=== PATIENT | female | born 1990 | race American Indian/Alaskan Native ===

== ENCOUNTER 2017-08-08 11:24 | Outpatient (CLI) | payer BC, MEDICAID ==
[2017-08-08] MEDS ORDERED: LACTATED RINGERS 0 ML ONE (12:29)
[2017-08-08 14:24] VITALS: BP 122/74
== END 2017-08-08 13:50 | disposition home or self-care (01) ==
LOC: TRG 11:24
PROVIDERS: ATTEND Obstetrics & Gynecology
DX: O47.1 False labor at or after 37 completed weeks of gestation (principal); Z3A.39 39 weeks gestation of pregnancy
CPT/HCPCS: J7120

== ENCOUNTER 2020-01-06 10:55 | Day surgery (SDC) | payer BC ==
--- NOTE | 2020-01-06 11:30 | Anesthesia Consultation ---
Anesthesia Consult and Med Hx Date of service: 01/06/20 - Airway Anesthetic Teeth Evaluation: Good ROM Head & Neck: Adequate Mental/Hyoid Distance: Adequate Mallampati Class: Class I Intubation Access Assessment: Good - Pulmonary Exam CTA: Yes - Cardiac Exam Cardiac Exam: RRR - Pre-Operative Health Status ASA Pre-Surgery Classification: ASA2 Proposed Anesthetic Plan: General - Pulmonary Hx Smoking: Yes (THC; black and milds) Hx Respiratory Symptoms: No - Cardiovascular System Hx Hypertension: No Hx Heart Attack/AMI: No - Central Nervous System CVA: No - Endocrine Hx Renal Disease: No Hx Liver Disease: No Hx Insulin Dependent Diabetes: No Hx Non-Insulin Dependent Diabetes: No Hx Thyroid Disease: No - Other Systems Hx Substance Use: Yes (THC) Hx Obesity: Yes (BMI 25) - Additional Comments Anesthesia Medical History Comments: No prior GA.
--- NOTE | 2020-01-06 11:30 | Anesthesia Day of Surgery ---
Anesthesia Day of Surgery - Day of Surgery Patient Examined: Yes Patient H&P Reviewed: Yes Patient is NPO: Yes
[2020-01-06] MEDS ORDERED: propofoL 200 MG/20 ML VIAL IV ONE (11:48)
[2020-01-06] MEDS ORDERED: HYDROmorphone 1 MG/1 ML INJ ONE (11:48)
[2020-01-06] MEDS ORDERED: ROCURONIUM 50 MG/5 ML INJ IV ONE (11:49)
[2020-01-06] MEDS ORDERED: LIDOCAINE MPF (2%) 20 MG/1 ML VIAL 5 ML ONE (11:49)
[2020-01-06] MEDS ORDERED: BUPIVACAINE-EPINEPHRINE/PF 0.5%-1:200,000 (30 ML) VIAL INFILTRATI ONE ×2 (11:53→13:53)
[2020-01-06] MEDS ORDERED: HEPARIN 5,000 UNIT/1 ML VIAL SUB-Q ONE (12:00)
[2020-01-06] MEDS ORDERED: MIDAZOLAM 2 MG/2 ML INJ IV NR (12:00)
[2020-01-06] MEDS ORDERED: ceFAZolin/Water 2 GM/20 ML 2 GM/20 ML SYRINGE IV ONE (12:00)
[2020-01-06] MEDS ORDERED: LACTATED RINGERS 1,000 ML IV SCH (12:00)
[2020-01-06] MEDS ORDERED: SCOPOLAMINE TRANSDERMAL PATCH 72 HR TD NR (12:00)
[2020-01-06] MEDS ORDERED: GABAPENTIN 300 MG CAP PO NR (12:00)
[2020-01-06] MEDS ORDERED: CELECOXIB 200 MG CAP PO NR (12:00)
[2020-01-06] MEDS ORDERED: SODIUM CHLORIDE 0.9% IRR 1,500 ML BOTTLE IR ONE (12:47)
[2020-01-06] MEDS ORDERED: dexAMETHasone 20 MG/5 ML VIAL ONE (12:56)
[2020-01-06] MEDS ORDERED: ceFAZolin/Water 2 GM/20 ML 2 GM/20 ML SYRINGE IV SCH (13:00)
--- NOTE | 2020-01-06 15:10 | Post Operative Note ---
Pre-op diagnosis: Epigastric hernia Post-op diagnosis: same Procedure: Open repair of epigastric hernia Anesthesia: MEGHAN Surgeon: ANALI ARAMBULA Estimated blood loss: minimal Pathology: none Specimen disposition: discarded Condition: stable Disposition: PACU
[2020-01-06] MEDS ORDERED: ONDANSETRON 4 MG/2 ML INJ ONE (15:23)
[2020-01-06] MEDS ORDERED: LACTATED RINGERS 1,000 ML ONE (15:23)
[2020-01-06] MEDS ORDERED: GLYCOPYRROLATE 0.4 MG/2 ML INJ ONE (15:23)
[2020-01-06] MEDS ORDERED: NEOSTIGMINE 10MG/10 ML INJ MDV ONE (15:23)
[2020-01-06] MEDS: HYDROmorphone 1 MG/1 ML INJ IV PRN ×3 (15:29→15:49)
[2020-01-06] MEDS ORDERED: oxyCODONE /ACETAMINOPHEN 5-325MG TAB PO PRN (15:30)
--- NOTE | 2020-01-06 15:39 | Post Anesthesia Evaluation ---
- Post Anesthesia Evaluation Patient Participated: Yes Airway Patent: Yes Stable Respiratory Function: Yes Nausea/Vomiting: No Temp > 96.8F: Yes Pain Manageable: Yes Adequeate Hydration: Yes Anesthesia Complications: No Block Receding Appropriately: Not Applicable Patient on Ventilator: No
[2020-01-06 16:17] VITALS: BP 144/91
--- NOTE | 2020-01-12 13:35 | Procedure Note ---
Date of procedure: 01/06/20 Pre-op diagnosis: Epigastric hernia Post-op diagnosis: same Procedure: Open repair of epigastric hernia Description of procedure: Pt was placed supine on the OR table. GETA was administered. Abdomen was prepped and draped. A vertical midline incision was made over the hernia sac. The sac was secondary to a severely attenuated diastasis recti. The sac was excised bilaterally back to the rectus musculature. Hemostasis was obtained with the Bovie. The fascia was then approximated with multiple interrupted sutures of 0-Ethibond. SQ tissue was irrigated. Redundant skin was excised. Skin was approximated with a running subcuticular suture of 4-0 Monocryl. Skin glue was applied. Pt tolerated the procedure well. She was extubated in the OR and was taken to PACU in stable condition. Anesthesia: GETA Surgeon: ANALI ARAMBULA Estimated blood loss: minimal Pathology: none Specimen disposition: discarded Condition: stable Disposition: PACU
== END 2020-01-06 16:55 | disposition home or self-care (01) ==
LOC: OR 10:55
PROVIDERS: ATTEND Surgery
DX: K43.9 Ventral hernia without obstruction or gangrene (principal); D64.9 Anemia, unspecified; E66.9 Obesity, unspecified; F17.210 Nicotine dependence, cigarettes, uncomplicated; Z79.899 Other long term (current) drug therapy; Z68.25 Body mass index [BMI] 25.0-25.9, adult; Z98.891 History of uterine scar from previous surgery; Z98.890 Other specified postprocedural states; Z83.3 Family history of diabetes mellitus; Z82.49 Family history of ischemic heart disease and other diseases of the circulatory system
CPT/HCPCS: 49570; 81025; J0690; J1100; J1170; J1644; J2250; J2405; J2704; J2710; J7120